=== PATIENT | male | born 1995 | race Two or more races ===

== ENCOUNTER 2023-10-04 03:57 | Inpatient (IN) | payer BC, MEDICAID, OTHER ==
[~2023-10-04] VITALS: Ht 193 cm; Wt 100.9 kg
[2023-10-04 04:58] LABS: BASOPHILS % (AUTO) 0.7 % (0.0-2.0); EOSINOPHILS % (AUTO) 0.5 % (1.0-6.0); HEMATOCRIT 48.3 % (41-53); HEMOGLOBIN 16.5 g/dL (13.5-17.5); LYMPHOCYTES # (AUTO) 1.5 K/uL (1.0-4.8); LYMPHOCYTES % (AUTO) 22.8 % (22.0-44.0); MEAN CORPUSCULAR HEMOGLOBIN 29.8 pg (26.0-34.0); MEAN CORPUSCULAR HGB CONC 34.1 G/dL (31.0-37.0); MEAN CORPUSCULAR VOLUME 87 fL (80-100); MONOCYTES # (AUTO) 0.6 K/uL (0.1-1.0); MONOCYTES % (AUTO) 8.3 % (2.0-9.0); NEUTROPHILS # (AUTO) 4.6 K/uL (1.8-7.7); NEUTROPHILS % (AUTO) 67.7 % (40.0-70.0); PLATELET COUNT (AUTO) 237 K/uL (150-450); RED BLOOD CELL COUNT(AUTO) 5.54 MIL/uL (4.50-5.90); RED CELL DISTRIBUTION WIDTH 13.4 % (11.5-14.5); WHITE BLOOD COUNT (AUTO) 6.7 K/uL (4.5-11.0)
[2023-10-04 05:07] LABS: ANION GAP 6 mmol/L (8-16); CALCIUM, TOTAL 9.4 mg/dL (8.8-10.5); CARBON DIOXIDE 32 mmol/L (22-29); CHLORIDE 100 mmol/L (98-107); GLOMERULAR FILTR. RATE CALC > 60 mL/min (>60); GLUCOSE,RANDOM 93 mg/dL (70-110); POTASSIUM 3.8 mmol/L (3.5-5.1); SODIUM SERUM 138 mmol/L (136-145); UREA NITROGEN, BLOOD 15 mg/dL (7-18)
[2023-10-04 06:14] LABS: APPEARANCE,URINE CLEAR (CLEAR); BILIRUBIN,URINE NEGATIVE (NEGATIVE); COLOR,URINE YELLOW (YELLOW); GLUCOSE, URINE (UA) NEGATIVE (NEGATIVE); KETONES,URINE 80-100 mg/dL (NEGATIVE); LEUKOCYTE ESTERASE ,URINE NEGATIVE (NEGATIVE); NITRATE,URINE NEGATIVE (NEGATIVE); OCCULT BLOOD,URINE NEGATIVE (NEGATIVE); PROTEIN,URINE 30-70 mg/dL (NEGATIVE); SPECIFIC GRAVITIY, URINE 1.038 (1.003-1.030)
[2023-10-04 06:17] LABS: ALCOHOL, URINE DRUG SCREEN NEGATIVE (NEGATIVE); AMPHET/METH SCREEN,URINE POSITIVE (NEGATIVE); BARBITURATE SCREEN, URINE NEGATIVE (NEGATIVE); BENZODIAZEPINES SCREEN,URINE NEGATIVE (NEGATIVE); CANNABINOID SCREEN,URINE NEGATIVE (NEGATIVE); COCAINE SCREEN,URINE NEGATIVE (NEGATIVE); METHADONE SCREEN, URINE NEGATIVE (NEGATIVE); OPIATE SCREEN,URINE NEGATIVE (NEGATIVE); PHENCYCLIDINE SCREEN,URINE NEGATIVE (NEGATIVE)
[2023-10-04 06:28] LABS: BACTERIA,URINE None Seen /HPF (None Seen); RBC,URINE None Seen /HPF (0-2); SQUAMOUS EPITHELIAL CELL,UR Few /LPF (None Seen); WBC,URINE None Seen /HPF (0-5)
[2023-10-04] MEDS: LamoTRIgine 100 MG TABLET PO ONE (07:42)
[2023-10-04] MEDS: LORazepam 2 MG TABLET PO ONE (07:42)
[2023-10-04] MEDS ORDERED: OLANZapine 5 MG RAPDIS TABLET PO PRN (09:15)
[2023-10-04] MEDS ORDERED: GuaiFENesin/D-METHORPHAN [SUGAR-FREE] 200-20MG/10 ML SYRUP UDCUP PO PRN (09:15)
[2023-10-04] MEDS ORDERED: MAGNESIUM HYDROXIDE SUSPENSION 30 ML UDCUP PO PRN (09:15)
[2023-10-04] MEDS ORDERED: HydrOXYzine PAMOATE 50 MG CAPSULE PO PRN (09:15)
[2023-10-04] MEDS ORDERED: TUBERCULIN, PURIFIED PROTEIN DERIVATIVE 5 TU/0.1 ML SYRINGE ID ONE (09:15)
[2023-10-04] MEDS ORDERED: PROMETHAZINE HCL 25 MG TABLET PO PRN (09:15)
[2023-10-04] MEDS ORDERED: LOPERAMIDE HCL 2 MG CAPSULE PO PRN (09:15)
[2023-10-04] MEDS ORDERED: MAG HYDROX/ALUMINUM HYD/SIMETH ES 30 ML SUSPENSION UDCUP PO PRN (09:15)
[2023-10-04] MEDS ORDERED: ACETAMINOPHEN 325 MG TABLET PO PRN (09:15)
[2023-10-04 09:24] LABS: COVID AG,FIA SOURCE NASAL SWAB
[2023-10-04 10:28] LABS: SARS-COV2 (COVID) ANTIGEN,FIA Negative (Negative)
[2023-10-04 15:26] VITALS: BP 139/83; PULSE 100; RESP 18; TEMP 98.7; O2SAT 98
[2023-10-04] MEDS: THIAMINE 100 MG TABLET PO SCH (16:45)
[2023-10-04] MEDS: LamoTRIgine 100 MG TABLET PO SCH (16:45)
[2023-10-04] MEDS: LORazepam 2 MG TABLET PO PRN (19:59)
[2023-10-04 20:33] VITALS: BP 143/91; PULSE 89; RESP 18; TEMP 97.8; O2SAT 98
[2023-10-04] MEDS: MELATONIN 5 MG TABLET PO SCH (20:43)
[2023-10-05 08:43] VITALS: BP 139/77; PULSE 69; RESP 17; TEMP 97.6; O2SAT 98
[2023-10-05] MEDS: ATOMOXETINE HCL 10 MG CAPSULE PO SCH (08:56)
[2023-10-05] MEDS: NALTREXONE HCL 50 MG TABLET PO SCH (08:56)
[2023-10-05] MEDS: MULTIVITAMINS WITH MINERALS, THERAPEUTIC TABLET PO SCH (08:57)
[2023-10-05] MEDS: FOLIC ACID 1 MG TABLET PO SCH (08:57)
[2023-10-05 09:17] LABS: FREE T4 (FREE THYROXINE) 1.18 ng/dL (0.76-1.46); THYROID STIMULATING HORMONE 1.22 uIU/mL (0.36-3.74)
[2023-10-05 09:25] LABS: HEMOGLOBIN A1C 5.3 % (3.8-5.6)
[2023-10-05 20:47] VITALS: BP 138/84; PULSE 95; RESP 16; TEMP 97.4; O2SAT 97
[2023-10-05] MEDS: ZOLPIDEM TARTRATE 10 MG TABLET PO PRN (22:44)
[2023-10-06 02:06] LABS: HEPATITIS C AB (EIA) Non Reactive (Non Reactive)
[2023-10-06 08:33] VITALS: BP 135/80; PULSE 86; RESP 17; TEMP 98.2; O2SAT 98
[2023-10-06] MEDS ORDERED: QUET25TA36 PO (15:44)
[2023-10-06] MEDS ORDERED: MELA5TAB40 PO (15:44)
[2023-10-06] MEDS ORDERED: NALT50TA33 PO (15:44)
[2023-10-06] MEDS ORDERED: LAMO-24 PO (15:44)
[2023-10-06] MEDS: QUEtiapine FUMARATE 25 MG TABLET PO SCH (16:29)
[2023-10-07] MEDS ORDERED: ATOMOXETINE HCL 18 MG CAPSULE PO SCH (09:00)
== END 2023-10-06 16:40 | disposition home or self-care (01) | DRG 750 ==
LOC: EMS 03:58 → B2S 13:38
PROVIDERS: ADMIT Psychiatry & Neurology Psychiatry; ATTEND Psychiatry & Neurology Psychiatry
PROC: GZHZZZZ Group Psychotherapy (ICD-10-PCS; principal; 2023-10-05)
PROC: GZ58ZZZ Individual Psychotherapy, Cognitive-Behavioral (ICD-10-PCS; 2023-10-05)
DX: F25.9 Schizoaffective disorder, unspecified (principal); R45.851 Suicidal ideations; E78.5 Hyperlipidemia, unspecified; F17.210 Nicotine dependence, cigarettes, uncomplicated; Z20.822 Contact with and (suspected) exposure to COVID-19; F31.9 Bipolar disorder, unspecified; F60.0 Paranoid personality disorder; F90.9 Attention-deficit hyperactivity disorder, unspecified type; J44.9 Chronic obstructive pulmonary disease, unspecified; S90.821A Blister (nonthermal), right foot, initial encounter; Z79.899 Other long term (current) drug therapy; X58.XXXA Exposure to other specified factors, initial encounter; Y93.89 Activity, other specified; Y92.89 Other specified places as the place of occurrence of the external cause; Y99.8 Other external cause status
CPT/HCPCS: 80048; 80061; 80307; 81001; 83036; 84439; 84443; 85025; 86592; 86803; 87340; 99285